=== PATIENT | female | born 1955 | race Hispanic/Latino ===

== ENCOUNTER 2019-08-14 13:22 | Inpatient (IN) | payer OTHER ==
[~2019-08-14] VITALS: Ht 149.9 cm; Wt 62.0 kg
[2019-08-14 14:08] LABS: BASOPHILS % (AUTO) 0.5 % (0.0-5.0); EOSINOPHILS % (AUTO) 7.1 % (0.0-8.0); HEMATOCRIT 31.3 % (36-48); MEAN CORPUSCULAR HGB CONC 33.2 g/dL (32.0-36.0); MEAN CORPUSCULAR VOLUME 87.2 fL (79-99); NEUTROPHILS % (AUTO) 70.1 % (40.0-77.0); PLATELET COUNT (AUTO) 201 K/uL (130-400); RED BLOOD CELL COUNT(AUTO) 3.59 MIL/uL (4.00-5.50); RED CELL DISTRIBUTION WIDTH 13.2 % (11.0-15.5); WHITE BLOOD COUNT (AUTO) 5.9 K/uL (4.8-10.8)
[2019-08-14 14:19] LABS: APPEARANCE,URINE Clear (CLEAR); BILIRUBIN,URINE Negative (NEGATIVE); COLOR,URINE Yellow (YELLOW); GLUCOSE, URINE (UA) Negative (NEGATIVE); KETONES,URINE Negative (NEGATIVE); LEUKOCYTE ESTERASE ,URINE Moderate (NEGATIVE); NITRATE,URINE Negative (NEGATIVE); OCCULT BLOOD,URINE Negative (NEGATIVE); PROTEIN,URINE POS 1+ mg/dL (NEGATIVE); UROBILINOGEN,URINE 0.2 mg/dL (0.2-1.0)
[2019-08-14 14:24] LABS: ALANINE AMINOTRANSFERASE 21 U/L (12-78); ALBUMIN 3.5 g/dL (3.5-5.0); ASPARTATE AMINOTRANSFERASE 21 U/L (10-37); BILIRUBIN,TOTAL 0.6 mg/dL (0.2-1.0); CARBON DIOXIDE 22 mmol/L (21-32); CHLORIDE 106 mmol/L (101-111); CREATINE KINASE, TOTAL 20 U/L (21-232); CREATININE 4.5 mg/dL (0.5-1.5); GLOMERULAR FILTR. RATE CALC 10 mL/min (>60); GLUCOSE,RANDOM 85 mg/dL (70-105); POTASSIUM 4.3 mmol/L (3.5-5.1); SODIUM SERUM 138 mmol/L (136-145); TOTAL PROTEIN, SERUM 6.9 g/dL (6.0-8.3); UREA NITROGEN, BLOOD 41 mg/dL (7-18)
[2019-08-14 14:35] LABS: INR 0.94 (0.85-1.15); PARTIAL THROMBOPLASTIN TIME 23.1 SEC (26.3-35.5); PROTHROMBIN TIME 10.2 SEC (9.6-11.6)
[2019-08-14 14:45] LABS: BACTERIA,URINE Few /HPF (None Seen); MUCUS,URINE Few LPF (None Seen); SQUAMOUS EPITHELIAL CELL,UR Few /HPF (0-2)
[2019-08-14 14:46] LABS: FERRITIN 232 ng/mL (15-150)
[2019-08-14] MEDS ORDERED: CEFTRIAXONE SODIUM 1 GM ONE (16:30)
[2019-08-14] MEDS ORDERED: SODIUM CHLORIDE 0.9% 100 ML IV ONE (16:31)
[2019-08-14] MEDS ORDERED: ACETAMINOPHEN 325 MG TAB PO PRN ×2 (19:30)
[2019-08-14] MEDS ORDERED: ONDANSETRON HCL 4 MG/2 ML VIAL IV PRN (19:30)
[2019-08-14] MEDS ORDERED: KETOROLAC TROMETHAMINE 15MG/ML IV PRN (20:00)
[2019-08-14] MEDS: PHARMACY COMMUNICATION MISC SCH (20:15)
[2019-08-14] MEDS ORDERED: FAMOTIDINE/PF 20 MG/2 ML VIAL IV ONE (20:55)
[2019-08-14] MEDS ORDERED: CALCITONIN 200 UNITS/ML 2 ML VIAL SQ STA (21:03)
[2019-08-14] MEDS: CALCITONIN 3.7 ML AEROSOL NS SCH (22:00)
[2019-08-14] MEDS ORDERED: PAMIDRONATE DISODIUM IV ONE (22:00)
[2019-08-14] MEDS ORDERED: SODIUM CHLORIDE 0.9% IV ONE (22:00)
[2019-08-14 23:30] LABS: CREATININE 4.3 mg/dL (0.5-1.5); POTASSIUM 4.3 mmol/L (3.5-5.1)
[2019-08-15] MEDS: PHARMACY COMMUNICATION MISC SCH ×6 (00:15→16:35)
[2019-08-15 02:10] VITALS: BP 150/77
[2019-08-15 06:14] LABS: BASOPHILS % (AUTO) 0.8 % (0.0-5.0); EOSINOPHILS % (AUTO) 5.2 % (0.0-8.0); HEMATOCRIT 31.6 % (36-48); LYMPHOCYTES % (AUTO) 15.9 % (21.0-51.0); MEAN CORPUSCULAR HEMOGLOBIN 28.6 pg (27.0-33.0); MEAN CORPUSCULAR HGB CONC 32.6 g/dL (32.0-36.0); MEAN CORPUSCULAR VOLUME 87.8 fL (79-99); MONOCYTES % (AUTO) 11.4 % (3.0-13.0); NEUTROPHILS % (AUTO) 66.5 % (40.0-77.0); PLATELET COUNT (AUTO) 197 K/uL (130-400); RED CELL DISTRIBUTION WIDTH 13.3 % (11.0-15.5); WHITE BLOOD COUNT (AUTO) 6.6 K/uL (4.8-10.8)
[2019-08-15 06:54] LABS: ALANINE AMINOTRANSFERASE 16 U/L (12-78); ALBUMIN 3.2 g/dL (3.5-5.0); ASPARTATE AMINOTRANSFERASE 27 U/L (10-37); BILIRUBIN,TOTAL 0.6 mg/dL (0.2-1.0); CARBON DIOXIDE 18 mmol/L (21-32); CHLORIDE 109 mmol/L (101-111); CREATINE KINASE, TOTAL 15 U/L (21-232); CREATININE 4.3 mg/dL (0.5-1.5); GLOMERULAR FILTR. RATE CALC 11 mL/min (>60); MYOGLOBIN 95 ng/mL (10-92); POTASSIUM 3.9 mmol/L (3.5-5.1); SODIUM SERUM 140 mmol/L (136-145); THYROID STIMULATING HORMONE 4.65 uIU/mL (0.36-3.74); TOTAL PROTEIN, SERUM 6.6 g/dL (6.0-8.3); TROPONIN I < 0.04 ng/mL (0.00-0.06); UREA NITROGEN, BLOOD 39 mg/dL (7-18)
[2019-08-15 07:09] LABS: GLUCOSE,RANDOM 50 mg/dL (70-105)
[2019-08-15 07:30] VITALS: BP 123/66
[2019-08-15] MEDS: FAMOTIDINE/PF 20 MG/2 ML VIAL IV SCH (08:46)
[2019-08-15] MEDS: CALCITONIN 3.7 ML AEROSOL NS SCH (08:47)
[2019-08-15] MEDS: SODIUM CHLORIDE 0.9% 1000ML 1,000 ML IV SCH ×2 (08:53→16:00)
[2019-08-15] MEDS ORDERED: CALCITONIN 200 UNITS/ML 2 ML VIAL SQ ONE (09:30)
--- NOTE | 2019-08-15 10:10 | NUR ---
DYSPHAGIA EVAL COMPLETED. -S/S OF ASPIRATION AT THIS TIME. RECOMMEND MECHANICAL SOFT/GROUND (NOT TOO DRY) SOLIDS, THIN LIQUIDS, AND PILLS WHOLE WITH LIQUIDS TOLERATED. Pt DOWNGRADED TO MECHANICAL SOFT/GROUND DUE TO GLOBUS SENSATION. DRY CONSISTENCIES MAKE IT WORSE WHEN SWALLOWING. ADD GRAVY OR SAUCE TO DRY FOOD TEXTURES. STRAND GALVANIZER COORDINATED WITH NURSE GREEN ABOUT CARE AND RECOMMENDATIONS. Addendum: 08/15/[address] ANALY LEMA Amended: Links added.
[2019-08-15 11:00] VITALS: BP 137/68
--- NOTE | 2019-08-15 11:12 | NUR ---
NOTIFIED DR. NGUYEN CALLED DR. NGUYEN'S OFFICE [phone] AT APPROX 1100 HOURS TO ADVISE OF A CRITICAL CALCIUM LEVEL OF 13.3. SPOKE WITH HAMLET WHO ADVISED SHE WOULD CONTACT THE DR. SHE ALSO REQUESTED I FAX THE LAB VALUES TO [phone].
--- NOTE | 2019-08-15 11:29 | NUR ---
cm note met with patient and states resides at home with sisters. pt drives, works time study statistician. independent with adls and self care. no dme. states no dc needs. dcplan is home Addendum: 08/15/19 at 1133 by OLGA CELESTE CM Amended: Links added.
[2019-08-15 13:41] LABS: CREATININE 4.1 mg/dL (0.5-1.5); POTASSIUM 4.1 mmol/L (3.5-5.1)
[2019-08-15 15:30] VITALS: BP 147/68
--- NOTE | 2019-08-15 15:59 | NUR ---
DR. WENDY SKINNER REQUEST DR. NGUYEN BE NOTIFIED REGARDING THE MEDICATION AREDIA MAY BE CONTRAINDICATED FOR A PATIENT WITH RENAL FAILURE. DR. NGUYEN STATED HE HAD REQUESTED PROLIA, HOWEVER, THAT WAS A MEDICATION NOT PROVIDED BY OUR PHARMACY AND THE AREDIA WAS ADMINISTERED IN A LOW DOSE. ALSO, ADVISED DR. NGUYEN PATIENT'S CALCIUM LEVEL HAD DROPPED TO 12.3 AT LAST LAB DRAW.
[2019-08-15 18:29] LABS: CREATININE 4.2 mg/dL (0.5-1.5); POTASSIUM 4.4 mmol/L (3.5-5.1)
[2019-08-15 19:00] VITALS: BP 142/68
[2019-08-15 23:00] VITALS: BP 131/71
[2019-08-16] MEDS: PHARMACY COMMUNICATION MISC SCH ×6 (00:15→13:57)
[2019-08-16 03:00] VITALS: BP 135/61
[2019-08-16 05:00] LABS: BASOPHILS % (AUTO) 0.5 % (0.0-5.0); EOSINOPHILS % (AUTO) 7.4 % (0.0-8.0); HEMATOCRIT 29.5 % (36-48); LYMPHOCYTES % (AUTO) 9.6 % (21.0-51.0); MEAN CORPUSCULAR HEMOGLOBIN 29.3 pg (27.0-33.0); MEAN CORPUSCULAR HGB CONC 33.6 g/dL (32.0-36.0); MEAN CORPUSCULAR VOLUME 87.3 fL (79-99); MONOCYTES % (AUTO) 10.5 % (3.0-13.0); NEUTROPHILS % (AUTO) 71.8 % (40.0-77.0); PLATELET COUNT (AUTO) 197 K/uL (130-400); RED BLOOD CELL COUNT(AUTO) 3.38 MIL/uL (4.00-5.50); RED CELL DISTRIBUTION WIDTH 13.4 % (11.0-15.5); WHITE BLOOD COUNT (AUTO) 5.9 K/uL (4.8-10.8)
[2019-08-16 05:17] LABS: ALBUMIN 2.8 g/dL (3.5-5.0); BILIRUBIN,TOTAL 0.4 mg/dL (0.2-1.0); CREATININE 3.7 mg/dL (0.5-1.5); PHOSPHORUS 3.2 mg/dL (2.5-4.9); POTASSIUM 3.9 mmol/L (3.5-5.1); URIC ACID 7.8 mg/dL (2.6-7.2)
[2019-08-16 05:45] LABS: % IRON SATURATION 27.6 % (22-44)
[2019-08-16 08:00] VITALS: BP 135/70
[2019-08-16] MEDS: FAMOTIDINE/PF 20 MG/2 ML VIAL IV SCH (10:39)
[2019-08-16] MEDS ORDERED: MEGE40L PO ×2 (10:55)
[2019-08-16] MEDS ORDERED: POLY17PO4 PO ×2 (10:55)
[2019-08-16] MEDS ORDERED: VITAD50000 PO (10:55)
[2019-08-16] MEDS ORDERED: FERS325 PO ×2 (10:55)
[2019-08-16] MEDS ORDERED: NAPR-1174 PO ×2 (10:55)
[2019-08-16 12:00] VITALS: BP 133/66
[2019-08-16] MEDS: SODIUM CHLORIDE 0.9% 1000ML 1,000 ML IV SCH ×2 (12:00→14:29)
[2019-08-16] MEDS ORDERED: SODIUM BICARBONATE 650 MG TAB PO SCH (15:15)
[2019-08-16 16:00] VITALS: BP 116/61
[2019-08-16 19:00] VITALS: BP 155/67
[2019-08-16] MEDS: SODIUM BICARBONATE 650 MG TAB PO SCH (21:22)
[2019-08-17] VITALS: BP 148/70
[2019-08-17 04:00] VITALS: BP 131/62
[2019-08-17 04:34] LABS: BASOPHILS % (AUTO) 0.4 % (0.0-5.0); EOSINOPHILS % (AUTO) 7.2 % (0.0-8.0); HEMATOCRIT 26.6 % (36-48); MEAN CORPUSCULAR HEMOGLOBIN 28.8 pg (27.0-33.0); MEAN CORPUSCULAR HGB CONC 33.1 g/dL (32.0-36.0); MEAN CORPUSCULAR VOLUME 86.9 fL (79-99); MONOCYTES % (AUTO) 13.9 % (3.0-13.0); NEUTROPHILS % (AUTO) 67.1 % (40.0-77.0); PLATELET COUNT (AUTO) 171 K/uL (130-400); RED BLOOD CELL COUNT(AUTO) 3.06 MIL/uL (4.00-5.50); RED CELL DISTRIBUTION WIDTH 13.6 % (11.0-15.5); WHITE BLOOD COUNT (AUTO) 5.5 K/uL (4.8-10.8)
[2019-08-17 04:50] LABS: ALBUMIN 2.5 g/dL (3.5-5.0); BILIRUBIN,TOTAL 0.3 mg/dL (0.2-1.0); CREATININE 2.9 mg/dL (0.5-1.5); POTASSIUM 3.3 mmol/L (3.5-5.1); TOTAL PROTEIN, SERUM 5.5 g/dL (6.0-8.3)
[2019-08-17] MEDS: SODIUM CHLORIDE 0.9% 1000ML 1,000 ML IV SCH ×3 (05:16→20:43)
[2019-08-17 08:00] VITALS: BP 115/51
[2019-08-17] MEDS: FAMOTIDINE/PF 20 MG/2 ML VIAL IV SCH (08:40)
[2019-08-17] MEDS: SODIUM BICARBONATE 650 MG TAB PO SCH ×2 (08:40→20:43)
[2019-08-17 11:24] VITALS: BP 133/62
[2019-08-17] MEDS ORDERED: EPOETIN ALFA 10,000 UNIT/ML VIAL SQ SCH ×2 (11:30→12:45)
[2019-08-17] MEDS ORDERED: POTASSIUM CHLORIDE 20 MEQ ERTAB PO SCH (12:45)
[2019-08-17 16:00] VITALS: BP 128/56
[2019-08-17] MEDS: FERROUS SULFATE 325 MG TABLET.DR PO SCH (16:47)
[2019-08-17 20:26] VITALS: BP 153/69
[2019-08-18] VITALS (7 sets, daily range): BP systolic 133–148; BP diastolic 54–80
[2019-08-18 04:30] LABS: BASOPHILS % (AUTO) 0.4 % (0.0-5.0); EOSINOPHILS % (AUTO) 7.4 % (0.0-8.0); HEMATOCRIT 26.9 % (36-48); LYMPHOCYTES % (AUTO) 13.2 % (21.0-51.0); MEAN CORPUSCULAR HEMOGLOBIN 28.6 pg (27.0-33.0); MEAN CORPUSCULAR HGB CONC 32.7 g/dL (32.0-36.0); MEAN CORPUSCULAR VOLUME 87.3 fL (79-99); MONOCYTES % (AUTO) 13.9 % (3.0-13.0); NEUTROPHILS % (AUTO) 64.7 % (40.0-77.0); PLATELET COUNT (AUTO) 161 K/uL (130-400); RED BLOOD CELL COUNT(AUTO) 3.08 MIL/uL (4.00-5.50); RED CELL DISTRIBUTION WIDTH 13.6 % (11.0-15.5); WHITE BLOOD COUNT (AUTO) 4.6 K/uL (4.8-10.8)
[2019-08-18 04:47] LABS: ALBUMIN 2.4 g/dL (3.5-5.0); BILIRUBIN,TOTAL 0.3 mg/dL (0.2-1.0); CREATININE 2.5 mg/dL (0.5-1.5); POTASSIUM 3.6 mmol/L (3.5-5.1); TOTAL PROTEIN, SERUM 5.4 g/dL (6.0-8.3)
[2019-08-18] MEDS: SODIUM CHLORIDE 0.9% 1000ML 1,000 ML IV SCH ×2 (06:14→17:16)
[2019-08-18] MEDS: FERROUS SULFATE 325 MG TABLET.DR PO SCH ×2 (08:47→17:07)
[2019-08-18] MEDS: SODIUM BICARBONATE 650 MG TAB PO SCH ×2 (08:47→20:16)
[2019-08-18] MEDS: FAMOTIDINE/PF 20 MG/2 ML VIAL IV SCH (08:47)
--- NOTE | 2019-08-18 10:20 | NUR ---
FOLLOW UP COMPLETED. CIVIL ENGINEER'S AIDE COORDINATED WITH NURSE MARCOS. Pt TOLERATING DIET RECOMMENDATIONS WITH NO S/S OF ASPIRATION AT THIS TIME. CONTINUE WITH PLAN OF CARE TOLERATED. Addendum: 08/18/[address] ANALY LEMA Amended: Links added.
--- NOTE | 2019-08-18 13:58 | NUR ---
DR BRODY SKINNER ROUNDED ON PATIENT ORDERS RECEIVED FOR BMP, CBC AND PHOS LEVEL IN AM , ORDERS PLACED
[2019-08-18] MEDS: CEFTRIAXONE SODIUM 1 GM IVP SCH (17:07)
--- NOTE | 2019-08-18 20:40 | NUR ---
HERO MONAHAN SPOKE WITH THE PATIENT AT BEDSIDE. MEDIC PLAN WAS DISCUSSED WITH THE PT, THE PT HAD NO FURTHER QUESTIONS AT THIS TIME. INFORMED HERO THAT THE PT HAS BEEN C/O OF CONSTIPATION. A ONE TIME ORDER FOR LACTULOSE WAS GIVEN. ORDER PLACED IN [facility].
[2019-08-18] MEDS ORDERED: EPOETIN ALFA 10,000 UNIT/ML VIAL SQ SCH (21:00)
[2019-08-18] MEDS ORDERED: LACTULOSE 20 GM/30 ML UDCUP PO ONE (22:30)
[2019-08-19] MEDS ORDERED: LACTULOSE 20 GM/30 ML UDCUP ONE (02:03)
[2019-08-19 03:26] VITALS: BP 143/60
[2019-08-19] MEDS: CEFTRIAXONE SODIUM 1 GM IVP SCH (03:28)
[2019-08-19] MEDS: SODIUM CHLORIDE 0.9% 1000ML 1,000 ML IV SCH (03:29)
[2019-08-19 03:30] VITALS: BP 131/63
[2019-08-19 04:28] LABS: BASOPHILS % (AUTO) 0.6 % (0.0-5.0); EOSINOPHILS % (AUTO) 7.5 % (0.0-8.0); MEAN CORPUSCULAR HEMOGLOBIN 28.4 pg (27.0-33.0); MEAN CORPUSCULAR HGB CONC 33.1 g/dL (32.0-36.0); MEAN CORPUSCULAR VOLUME 85.8 fL (79-99); MONOCYTES % (AUTO) 13.6 % (3.0-13.0); NEUTROPHILS % (AUTO) 66.1 % (40.0-77.0); PLATELET COUNT (AUTO) 171 K/uL (130-400); RED BLOOD CELL COUNT(AUTO) 3.03 MIL/uL (4.00-5.50); RED CELL DISTRIBUTION WIDTH 13.8 % (11.0-15.5); WHITE BLOOD COUNT (AUTO) 5.1 K/uL (4.8-10.8)
[2019-08-19 04:52] LABS: CREATININE 2.4 mg/dL (0.5-1.5); PHOSPHORUS 2.3 mg/dL (2.5-4.9); POTASSIUM 3.2 mmol/L (3.5-5.1)
[2019-08-19] MEDS ORDERED: LACTULOSE 20 GM/30 ML UDCUP PO ONE (05:00)
[2019-08-19 07:43] VITALS: BP 141/63
[2019-08-19] MEDS: FAMOTIDINE/PF 20 MG/2 ML VIAL IV SCH (08:24)
[2019-08-19] MEDS: SODIUM BICARBONATE 650 MG TAB PO SCH (08:24)
[2019-08-19] MEDS: FERROUS SULFATE 325 MG TABLET.DR PO SCH (08:24)
[2019-08-19] MEDS ORDERED: PANT40TA55 PO ×2 (09:35)
[2019-11-30] MEDS ORDERED: LEVO25TA54 PO (23:36)
[2019-11-30] MEDS ORDERED: VITAMIN D 5000U PO (23:36)
[2019-11-30] MEDS ORDERED: OMEP40CA13 PO (23:36)
[2019-11-30] MEDS ORDERED: DOCU100C33 PO (23:36)
[2019-11-30] MEDS ORDERED: FOLI1TAB85 PO (23:36)
[2019-12-11] MEDS ORDERED: ONDA8TAB5 PO (13:37)
[2019-12-11] MEDS ORDERED: ACET1TAB25 PO (13:37)
== END 2019-08-19 11:06 | disposition home or self-care (01) | DRG 683 ==
LOC: EDH 13:22 → EDHIP 19:26 → 4BH 08-15 01:28
PROVIDERS: ADMIT Internal Medicine; ATTEND Internal Medicine
DX: N17.9 Acute kidney failure, unspecified (principal); N39.0 Urinary tract infection, site not specified; E87.2 Acidosis; J98.11 Atelectasis; E83.52 Hypercalcemia; K21.9 Gastro-esophageal reflux disease without esophagitis; D64.9 Anemia, unspecified; I12.9 Hypertensive chronic kidney disease with stage 1 through stage 4 chronic kidney disease, or unspecified chronic kidney disease; K59.00 Constipation, unspecified; B95.1 Streptococcus, group B, as the cause of diseases classified elsewhere; N18.9 Chronic kidney disease, unspecified; R13.10 Dysphagia, unspecified; Z87.440 Personal history of urinary (tract) infections; Z98.42 Cataract extraction status, left eye; Z98.41 Cataract extraction status, right eye; Z90.49 Acquired absence of other specified parts of digestive tract
CPT/HCPCS: 36415; 71045; 72131; 73521; 76770; 77075; 80048; 80053; 81001; 82270; 82306; 82330; 82550; 82728; 83540; 83550; 83735; 83874; 83880; 83970; 84100; 84145; 84156; 84166; 84443; 84484; 84550; 85025; 85610; 85730; 86325; 86334; 87088; 92610; 93005; G0378; J0696; J0885; J2430; J3490; J7030

== ENCOUNTER 2019-08-20 13:12 | Emergency (ER) | payer OTHER ==
[~2019-08-20 13:12] MED LIST: FERS325 PO; MEGE40L PO; NAPR-1174 PO; PANT40TA55 PO; POLY17PO4 PO; VITAD50000 PO
[2019-08-20] MEDS ORDERED: FUROSEMIDE 10 MG/ML 2ML VIAL ONE (13:46)
[2019-08-20 13:52] LABS: BASOPHILS % (AUTO) 0.4 % (0.0-5.0); EOSINOPHILS % (AUTO) 6.4 % (0.0-8.0); HEMATOCRIT 27.7 % (36-48); LYMPHOCYTES % (AUTO) 10.5 % (21.0-51.0); MEAN CORPUSCULAR HEMOGLOBIN 29.1 pg (27.0-33.0); MEAN CORPUSCULAR HGB CONC 34.3 g/dL (32.0-36.0); MONOCYTES % (AUTO) 11.8 % (3.0-13.0); NEUTROPHILS % (AUTO) 70.6 % (40.0-77.0); PLATELET COUNT (AUTO) 204 K/uL (130-400); RED BLOOD CELL COUNT(AUTO) 3.26 MIL/uL (4.00-5.50); WHITE BLOOD COUNT (AUTO) 6.7 K/uL (4.8-10.8)
[2019-08-20 14:02] LABS: CREATININE 2.3 mg/dL (0.5-1.5); POTASSIUM 3.1 mmol/L (3.5-5.1)
[2019-08-20 14:07] LABS: ALBUMIN 3.1 g/dL (3.5-5.0); BILIRUBIN,TOTAL 0.2 mg/dL (0.2-1.0); MAGNESIUM 1.9 mg/dL (1.80-2.40); PHOSPHORUS 2.4 mg/dL (2.5-4.9); TOTAL PROTEIN, SERUM 6.7 g/dL (6.0-8.3)
[2019-08-20 14:12] LABS: B-TYPE NATRIURETIC PEPTIDE 320 pg/mL (0-100)
[2019-11-30] MEDS ORDERED: FOLI1TAB85 PO (23:36)
[2019-11-30] MEDS ORDERED: LEVO25TA54 PO (23:36)
[2019-11-30] MEDS ORDERED: VITAMIN D 5000U PO (23:36)
[2019-11-30] MEDS ORDERED: DOCU100C33 PO (23:36)
[2019-11-30] MEDS ORDERED: OMEP40CA13 PO (23:36)
[2019-12-11] MEDS ORDERED: ONDA8TAB5 PO (13:37)
[2019-12-11] MEDS ORDERED: ACET1TAB25 PO (13:37)
== END 2019-08-20 16:14 | disposition home or self-care (01) ==
LOC: EDH 13:12
DX: E87.70 Fluid overload, unspecified (principal); R06.00 Dyspnea, unspecified; Z20.828 Contact with and (suspected) exposure to other viral communicable diseases; K21.9 Gastro-esophageal reflux disease without esophagitis
CPT/HCPCS: 36415; 71046; 80053; 82550; 83735; 83880; 84100; 84484; 85025; 93005; 96374; 99285; J1940; U0003

== ENCOUNTER 2019-08-30 16:01 | Emergency (ER) | payer OTHER ==
[~2019-08-30 16:01] MED LIST changes: +PANT40TA25 PO; -PANT40TA55 PO; -VITAD50000 PO
[2019-08-30 16:38] LABS: BASOPHILS % (AUTO) 0.9 % (0.0-5.0); EOSINOPHILS % (AUTO) 5.5 % (0.0-8.0); HEMATOCRIT 30.8 % (36-48); MEAN CORPUSCULAR HEMOGLOBIN 28.7 pg (27.0-33.0); MEAN CORPUSCULAR HGB CONC 33.1 g/dL (32.0-36.0); MEAN CORPUSCULAR VOLUME 86.5 fL (79-99); MONOCYTES % (AUTO) 11.7 % (3.0-13.0); NEUTROPHILS % (AUTO) 71.6 % (40.0-77.0); PLATELET COUNT (AUTO) 297 K/uL (130-400); RED BLOOD CELL COUNT(AUTO) 3.56 MIL/uL (4.00-5.50); WHITE BLOOD COUNT (AUTO) 6.8 K/uL (4.8-10.8)
[2019-08-30 16:51] LABS: INR 0.95 (0.85-1.15); PARTIAL THROMBOPLASTIN TIME 24.5 SEC (26.3-35.5); PROTHROMBIN TIME 10.3 SEC (9.6-11.6)
[2019-08-30 16:56] LABS: ALBUMIN 3.2 g/dL (3.5-5.0); BILIRUBIN,TOTAL 0.3 mg/dL (0.2-1.0); CREATININE 1.8 mg/dL (0.5-1.5); POTASSIUM 4.2 mmol/L (3.5-5.1)
[2019-08-30 17:52] LABS: APPEARANCE,URINE Clear (CLEAR); BILIRUBIN,URINE Negative (NEGATIVE); COLOR,URINE Yellow (YELLOW); GLUCOSE, URINE (UA) Negative (NEGATIVE); KETONES,URINE Negative (NEGATIVE); LEUKOCYTE ESTERASE ,URINE Small (NEGATIVE); NITRATE,URINE Negative (NEGATIVE); OCCULT BLOOD,URINE Negative (NEGATIVE); PROTEIN,URINE Negative (NEGATIVE); UROBILINOGEN,URINE 0.2 mg/dL (0.2-1.0)
[2019-08-30 18:53] LABS: RBC,URINE 0-1 /HPF (0-1)
[2019-08-30 18:54] LABS: BACTERIA,URINE Few /HPF (None Seen)
[2019-08-30 18:55] LABS: SQUAMOUS EPITHELIAL CELL,UR Rare /HPF (0-2); TRANSITIONAL EPI CELLS,URINE Rare /HPF (None Seen)
== END 2019-08-30 19:32 | disposition home or self-care (01) ==
LOC: EDH 16:01
DX: D64.9 Anemia, unspecified (principal); R53.1 Weakness; N28.9 Disorder of kidney and ureter, unspecified; E83.52 Hypercalcemia; N39.0 Urinary tract infection, site not specified; Z90.49 Acquired absence of other specified parts of digestive tract
CPT/HCPCS: 36415; 71045; 80053; 81001; 82550; 84484; 85025; 85610; 85730; 93005

== ENCOUNTER 2019-11-18 21:37 | Emergency (ER) | payer OTHER ==
[~2019-11-18 21:37] MED LIST changes: -PANT40TA25 PO; +PANT40TA55 PO
[2019-11-18 22:06] LABS: BASOPHILS % (AUTO) 0.7 % (0.0-5.0); EOSINOPHILS % (AUTO) 1.2 % (0.0-8.0); HEMATOCRIT 35.3 % (36-48); LYMPHOCYTES % (AUTO) 16.8 % (21.0-51.0); MEAN CORPUSCULAR HEMOGLOBIN 29.9 pg (27.0-33.0); MEAN CORPUSCULAR HGB CONC 33.1 g/dL (32.0-36.0); MEAN CORPUSCULAR VOLUME 90.3 fL (79-99); PLATELET COUNT (AUTO) 302 K/uL (130-400); RED BLOOD CELL COUNT(AUTO) 3.91 MIL/uL (4.00-5.50); RED CELL DISTRIBUTION WIDTH 14.9 % (11.0-15.5)
[2019-11-18 22:20] LABS: CREATININE 1.5 mg/dL (0.5-1.5); POTASSIUM 3.6 mmol/L (3.5-5.1)
[2019-11-18 22:25] LABS: ALBUMIN 3.3 g/dL (3.5-5.0); BILIRUBIN,TOTAL 0.3 mg/dL (0.2-1.0); TOTAL PROTEIN, SERUM 6.3 g/dL (6.0-8.3)
[2019-11-18 22:46] LABS: B-TYPE NATRIURETIC PEPTIDE 39 pg/mL (0-100)
[2019-11-30] MEDS ORDERED: FOLI1TAB85 PO (23:36)
[2019-11-30] MEDS ORDERED: DOCU100C33 PO (23:36)
[2019-11-30] MEDS ORDERED: OMEP40CA13 PO (23:36)
[2019-11-30] MEDS ORDERED: LEVO25TA54 PO (23:36)
[2019-11-30] MEDS ORDERED: VITAMIN D 5000U PO (23:36)
== END 2019-11-18 23:39 | disposition home or self-care (01) ==
LOC: EDH 21:37
DX: E87.70 Fluid overload, unspecified (principal); R60.0 Localized edema; K21.9 Gastro-esophageal reflux disease without esophagitis; Z79.899 Other long term (current) drug therapy; Z90.49 Acquired absence of other specified parts of digestive tract
CPT/HCPCS: 36415; 71045; 80053; 83880; 84484; 85025; 93005